=== PATIENT | female | born 2005 | race Caucasian/White ===

== ENCOUNTER 2024-12-07 20:00 | Outpatient (REF) | payer OTHER, SELFPAY ==
--- NOTE | ~2024-12-07 | MR_ITS ---
CLINICAL HISTORY: Low back pain MR lumbar spine without gadolinium Comparison: No prior lumbar spine imaging is available for review at this time. Findings: Transitional vertebral anatomy. Small 12th ribs and sacralization of the L5 for the purposes of this dictation only. Normal vertebral heights. No significant listhesis. Heterogeneous marrow signal accentuated by multiple scattered hemangiomas. No drainable paraspinal fluid collection. Conus terminates at T12 by this numbering system and transitional vertebral anatomy. L1-L2: No spinal stenosis. L2-L3: No spinal stenosis. L3-L4: Small disc bulge and bilateral facet arthropathy. No spinal stenosis. L4-L5: Small disc bulge, annular fissure, endplate hypertrophy, and bilateral facet arthropathy. No spinal stenosis. Transitional L5-S1: No spinal stenosis. Bilateral facet arthropathy. IMPRESSION: 1. No significant spinal stenosis or nerve root compromise. 2. Transitional vertebral anatomy. 3. Lower lumbar facet arthropathy greater than expected for age. 4. Early mild degenerative disc changes with annular fissure at L4-L5. This document has been electronically signed by: Wilber Barba MD on 12/07/2024 20:49:10
== END 2024-12-07 20:01 | disposition home or self-care (01) ==
LOC: HO.MRI 20:00
PROVIDERS: Visit Provider Student in an Organized Health Care Education/Training Program
DX: M54.50 Low back pain, unspecified (principal)
CPT/HCPCS: 72148

== ENCOUNTER → 2024-12-07 20:11 | Outpatient (BNV) | payer OTHER, SELFPAY | PROVIDERS: Visit Provider Radiology Neuroradiology | DX: M54.50 Low back pain, unspecified (principal) | CPT/HCPCS: 72148 ==